=== PATIENT | male | born 1945 | race Caucasian/White ===

== ENCOUNTER 2018-09-26 21:14 | Observation (INO) ==
--- NOTE | 2018-09-26 21:44 | ED ---
HPI General Chief Complaint: Chest Pain Stated Complaint: chest pain Time Seen by Provider: 09/26/18 21:38 Related Data Home Medications Medication Instructions Recorded Confirmed albuterol sulfate 0.63 mg INHALATION DAILY 09/26/18 09/26/18 alendronate 70 mg PO QWEEK 09/26/18 09/26/18 atorvastatin 80 mg PO DAILY 09/26/18 09/26/18 hydrocodone-acetaminophen 1 tab PO DAILY 09/26/18 09/26/18 lisinopril 2.5 mg PO DAILY 09/26/18 09/26/18 metformin 2,000 mg PO BID 09/26/18 09/26/18 metoprolol tartrate 12.5 mg PO BID 09/26/18 09/26/18 sildenafil 25 mg PO WEEKLY 09/26/18 09/26/18 Allergies Allergy/AdvReac Type Severity Reaction Status Date / Time No Known Allergies Allergy Uncoded 02/11/14 11:40 Review of Systems ROS: all other systems reviewed are negative PMFSH History History Provided By: Patient Medical History Medical History COPD (chronic obstructive pulmonary disease) (Acute) Diabetes (Acute) Surgical History Surgical History History of back surgery (Acute) Hx of hernia repair (Acute) S/P CABG x 5 (Acute) Social History Social History Substance History: No History of Abuse Second Hand Smoke Exposure: No Smoking Status: Former smoker How Often Do You Have a Drink Containing Alcohol: Never Recent Travel in [facility] within the Last 8 Weeks: No Recent Out of Country Travel within the Last 8 Weeks: No Exam Narrative Exam Narrative: GENERAL: Well-nourished, well-developed patient in no apparent distress. SKIN: Warm and dry. HEAD: Atraumatic. Normocephalic. EYES: Pupils equal and round. No scleral icterus. No injection or drainage. ENT: No nasal bleeding or discharge. Mucous membranes pink and moist. NECK: Trachea midline. No JVD. CARDIOVASCULAR: Regular rate and rhythm. no rubs or gallops RESPIRATORY: No accessory muscle use. Clear to auscultation. Breath sounds equal bilaterally. GASTROINTESTINAL: Abdomen soft, non-tender, nondistended. No rebound or guarding MUSCULOSKELETAL: Extremities without clubbing, cyanosis, or edema. No obvious deformities. NEUROLOGICAL: Awake and alert. No obvious cranial nerve deficits. Motor grossly within normal limits. Five out of 5 muscle strength in the arms and legs. Normal speech. PSYCHIATRIC: Appropriate mood and affect; insight and judgment normal. Course Initial Documented Vital Signs Temperature 97.7 F 09/26/18 21:17 Pulse Rate 93 H 09/26/18 21:17 Respiratory Rate 18 09/26/18 21:17 Blood Pressure 164/77 H 09/26/18 21:17 Pulse Oximetry 96 09/26/18 21:17 Last Documented Vital Signs Temperature 97.7 F 09/26/18 21:17 Pulse Rate 80 09/26/18 21:43 Respiratory Rate 17 09/26/18 23:26 Blood Pressure 149/70 H 09/26/18 21:43 Pulse Oximetry 97 09/26/18 21:43 Medical Decision Making MDM Narrative Medical Screen Exam Complete: Yes Emergency Medical Condition: Yes Lab Data Result diagrams: 09/26/18 21:55 09/26/18 21:55 Lab Results 09/26/18 09/26/18 09/26/18 Range/Units 21:55 21:55 21:55 WBC 7.7 (4.0-11.0) th/mm3 RBC 4.59 (4.50-5.90) mil/mm3 Hgb 13.4 (13.0-17.0) gm/dL Hct 38.1 L (39.0-51.0) % MCV 83.0 (80.0-100.0) fL MCH 29.2 (27.0-34.0) pg MCHC 35.2 (32.0-36.0) % RDW 13.0 (11.6-17.2) % Plt Count 153 (150-450) th/mm3 MPV 9.2 (7.0-11.0) fL Neut % (Auto) 65.5 (16.0-70.0) % Lymph % (Auto) 22.3 (9.0-44.0) % [place] % (Auto) 9.7 H (0.0-8.0) % Eos % (Auto) 2.0 (0.0-4.0) % Baso % (Auto) 0.5 (0.0-2.0) % Neut # (Auto) 5.0 (1.8-7.7) th/mm3 Lymph # (Auto) 1.7 (1.0-4.8) th/mm3 [place] # (Auto) 0.8 (0.0-0.9) th/mm3 Eos # (Auto) 0.2 (0.0-0.4) th/mm3 Baso # (Auto) 0.0 (0.0-0.2) th/mm3 WBC Differential . Differential Comment Auto diff final Sodium 141 (136-145) meq/L Potassium 3.7 (3.5-5.1) meq/L Chloride 108 H (98-107) meq/L Carbon Dioxide 24.2 (21.0-32.0) meq/L Anion Gap 9 (5-15) meq/L BUN 13 (7-18) mg/dL Creatinine 0.97 (0.60-1.30) mg/dL Estimated GFR 75 L (>89) mL/min Random Glucose 175 H (74-106) mg/dL Calcium 8.6 (8.5-10.1) mg/dL Total Bilirubin 0.4 (0.2-1.0) mg/dL AST 17 (15-37) U/L ALT 30 (12-78) U/L Alkaline Phosphatase 35 L (45-117) U/L Total Creatine Kinase 123 (39-308) U/L CK-MB (CK-2) 2.5 (0.5-3.6) ng/mL Troponin I Less than 0.02 L (0.02-0.05) ng/mL B-Natriuretic Peptide 21 (0-100) pg/mL Total Protein 6.8 (6.4-8.2) g/dL Albumin 3.5 (3.4-5.0) g/dL Lipase 138 (73-393) U/L Serum Alcohol Less than 3 (0-5) mg/dL Imaging Data Radiologist's impression: Chest X-Ray 09/26/18 21:39 CONCLUSION: Very mild bibasilar atelectasis. Discharge Plan Physicians Team ED Provider: Barrett Glass Rxs /Orders / Referrals /Forms Prescriptions: No Action albuterol sulfate 0.63 mg/3 mL Solution For Nebulization 0.63 mg INHALATION DAILY RF: 0 atorvastatin 80 mg Tablet 80 mg PO DAILY RF: 0 hydrocodone-acetaminophen 5-325 mg Tablet 1 tab PO DAILY RF: 0 alendronate 70 mg Tablet 70 mg PO QWEEK RF: 0 sildenafil 25 mg Tablet 25 mg PO WEEKLY RF: 0 metformin 1,000 mg Tablet 2,000 mg PO BID RF: 0 lisinopril 2.5 mg Tablet 2.5 mg PO DAILY RF: 0 metoprolol tartrate 25 mg Tablet 12.5 mg PO BID RF: 0 Status ED Status: With Doctor
--- NOTE | 2018-09-26 21:55 | ED ---
HPI General Chief Complaint: Chest Pain Stated Complaint: chest pain Time Seen by Provider: 09/26/18 21:38 Source: patient Mode of arrival: ambulatory Limitations: no limitations History of Present Illness HPI narrative: The patient is a 73 year old male with a history of CAD s/p CABG x5, hypertension and diabetes who presents to the ED with chief complaint of substernal chest pain. Patient was sitting down when he had sudden onset of sharp pain. He states the pain radiated down his left leg. He has had no nausea, vomiting or SOB. No fever or chills. PMHx: HTN Diabetes CAD s/p CABG x 5 Hyperlipidemia SHx: Denies alcohol Smoking history - quit 35 years ago MD complaint: Reports chest pain STEMI Alert: No Onset (ago): hour(s) Duration: constant Onset: during rest Pain location: Reports substernal Severity: moderate Severity scale (1-10): 5 Quality: Reports sharp Pain radiation: Reports other (LLE) Relieving factors: nothing Exacerbating factors: exertion Treatments prior to arrival chest pain: Reports none Related Data Home Medications Medication Instructions Recorded Confirmed albuterol sulfate 0.63 mg INHALATION DAILY 09/26/18 09/26/18 alendronate 70 mg PO QWEEK 09/26/18 09/26/18 atorvastatin 80 mg PO DAILY 09/26/18 09/26/18 hydrocodone-acetaminophen 1 tab PO DAILY 09/26/18 09/26/18 lisinopril 2.5 mg PO DAILY 09/26/18 09/26/18 metformin 2,000 mg PO BID 09/26/18 09/26/18 metoprolol tartrate 12.5 mg PO BID 09/26/18 09/26/18 sildenafil 25 mg PO WEEKLY 09/26/18 09/26/18 Allergies Allergy/AdvReac Type Severity Reaction Status Date / Time No Known Allergies Allergy Uncoded 02/11/14 11:40 Review of Systems ROS: all other systems reviewed are negative [facility] Medical History Medical History COPD (chronic obstructive pulmonary disease) (Acute) Diabetes (Acute) Surgical History Surgical History History of back surgery (Acute) Hx of hernia repair (Acute) S/P CABG x 5 (Acute) Social History Social History Substance History: No History of Abuse Second Hand Smoke Exposure: No Smoking Status: Former smoker How Often Do You Have a Drink Containing Alcohol: Never Recent Travel in [facility] within the Last 8 Weeks: No Recent Out of Country Travel within the Last 8 Weeks: No Immunization History Tetanus Immunization: <5 Years Exam Narrative Exam Narrative: GENERAL: Well-developed, well-nourished male in mild distress, alert and oriented x3. SKIN: Warm and dry. HEAD: Atraumatic. Normocephalic. EYES: Pupils equal and round. No scleral icterus. No injection or drainage. ENT: No nasal bleeding or discharge. Mucous membranes pink and moist. NECK: Trachea midline. No JVD. CARDIOVASCULAR: Regular rate and rhythm. RESPIRATORY: No accessory muscle use. Mild bibasilar crackles. Breath sounds equal bilaterally. GASTROINTESTINAL: Abdomen soft, non-tender, nondistended. Hepatic and splenic margins not palpable. MUSCULOSKELETAL: Extremities without clubbing, cyanosis, or edema. No obvious deformities. NEUROLOGICAL: Awake and alert. No obvious cranial nerve deficits. Motor grossly within normal limits. Five out of 5 muscle strength in the arms and legs. Normal speech. PSYCHIATRIC: Appropriate mood and affect; insight and judgment normal. Course Initial Documented Vital Signs Temperature 97.7 F 09/26/18 21:17 Pulse Rate 93 H 09/26/18 21:17 Respiratory Rate 18 09/26/18 21:17 Blood Pressure 164/77 H 09/26/18 21:17 Pulse Oximetry 96 09/26/18 21:17 Last Documented Vital Signs Temperature 97.7 F 09/26/18 21:17 Pulse Rate 80 09/26/18 21:43 Respiratory Rate 17 09/26/18 23:26 Blood Pressure 149/70 H 09/26/18 21:43 Pulse Oximetry 97 09/26/18 21:43 Medical Decision Making Lab Data Lab results reviewed: Yes I reviewed the patient's lab results. Result diagrams: 09/26/18 21:55 09/26/18 21:55 Lab Results 09/26/18 09/26/18 09/26/18 Range/Units 21:55 21:55 21:55 WBC 7.7 (4.0-11.0) th/mm3 RBC 4.59 (4.50-5.90) mil/mm3 Hgb 13.4 (13.0-17.0) gm/dL Hct 38.1 L (39.0-51.0) % MCV 83.0 (80.0-100.0) fL MCH 29.2 (27.0-34.0) pg MCHC 35.2 (32.0-36.0) % RDW 13.0 (11.6-17.2) % Plt Count 153 (150-450) th/mm3 MPV 9.2 (7.0-11.0) fL Neut % (Auto) 65.5 (16.0-70.0) % Lymph % (Auto) 22.3 (9.0-44.0) % [place] % (Auto) 9.7 H (0.0-8.0) % Eos % (Auto) 2.0 (0.0-4.0) % Baso % (Auto) 0.5 (0.0-2.0) % Neut # (Auto) 5.0 (1.8-7.7) th/mm3 Lymph # (Auto) 1.7 (1.0-4.8) th/mm3 [place] # (Auto) 0.8 (0.0-0.9) th/mm3 Eos # (Auto) 0.2 (0.0-0.4) th/mm3 Baso # (Auto) 0.0 (0.0-0.2) th/mm3 WBC Differential . Differential Comment Auto diff final Sodium 141 (136-145) meq/L Potassium 3.7 (3.5-5.1) meq/L Chloride 108 H (98-107) meq/L Carbon Dioxide 24.2 (21.0-32.0) meq/L Anion Gap 9 (5-15) meq/L BUN 13 (7-18) mg/dL Creatinine 0.97 (0.60-1.30) mg/dL Estimated GFR 75 L (>89) mL/min Random Glucose 175 H (74-106) mg/dL Calcium 8.6 (8.5-10.1) mg/dL Total Bilirubin 0.4 (0.2-1.0) mg/dL AST 17 (15-37) U/L ALT 30 (12-78) U/L Alkaline Phosphatase 35 L (45-117) U/L Total Creatine Kinase 123 (39-308) U/L CK-MB (CK-2) 2.5 (0.5-3.6) ng/mL Troponin I Less than 0.02 L (0.02-0.05) ng/mL B-Natriuretic Peptide 21 (0-100) pg/mL Total Protein 6.8 (6.4-8.2) g/dL Albumin 3.5 (3.4-5.0) g/dL Lipase 138 (73-393) U/L Serum Alcohol Less than 3 (0-5) mg/dL Imaging Data Radiologist's impression: Chest X-Ray 09/26/18 21:39 CONCLUSION: Very mild bibasilar atelectasis. ECG Data EKG Prior to Arrival: No Attestation: I personally reviewed and interpreted this ECG as follows: Prior ECG tracings: not available for review Interpretation: Normal sinus rhythm, 79 bpm, sinus arrhythmia, normal intervals , significant Q waves in 3 and aVF but without any acute ST elevation VT pattern noted. Discharge Plan Physicians Team ED Provider: Barrett Glass Rxs /Orders / Referrals /Forms Prescriptions: No Action albuterol sulfate 0.63 mg/3 mL Solution For Nebulization 0.63 mg INHALATION DAILY RF: 0 atorvastatin 80 mg Tablet 80 mg PO DAILY RF: 0 hydrocodone-acetaminophen 5-325 mg Tablet 1 tab PO DAILY RF: 0 alendronate 70 mg Tablet 70 mg PO QWEEK RF: 0 sildenafil 25 mg Tablet 25 mg PO WEEKLY RF: 0 metformin 1,000 mg Tablet 2,000 mg PO BID RF: 0 lisinopril 2.5 mg Tablet 2.5 mg PO DAILY RF: 0 metoprolol tartrate 25 mg Tablet 12.5 mg PO BID RF: 0 Status ED Status: With Doctor
--- NOTE | 2018-09-26 22:02 | XR ---
EXAM DATE: 09/26/2018 9:52 PM EST AGE/SEX: 73 years / Male INDICATIONS: Chest pain for 4 hours. CLINICAL DATA: This is the patient's initial encounter. Patient reports that signs and symptoms have been present for 1 day and indicates a pain score of 7/10. MEDICAL/SURGICAL HISTORY: None. None. COMPARISON: No prior exams available for comparison. FINDINGS: Trace atelectasis of both bases. No pneumonic infiltrate seen. No pleural effusion or pneumothorax. Heart size within normal limits. Patient has had previous median sternotomy and coronary artery bypas s graft operation. CONCLUSION: Very mild bibasilar atelectasis. Electronically signed by: Wilton Wright MD 09/26/2018 10:00 PM EST
[2018-09-26] MEDS ORDERED: Morphine Inj 4 MG/ML Vial IV.PUSH ONE (22:06)
[2018-09-26 22:38] LABS: Baso % (Auto) 0.5 % (0.0-2.0); Eos # (Auto) 0.2 th/mm3 (0.0-0.4); Hematocrit 38.1 % (39.0-51.0); Hemoglobin 13.4 gm/dL (13.0-17.0); Lymph # (Auto) 1.7 th/mm3 (1.0-4.8); Lymph % (Auto) 22.3 % (9.0-44.0); Mean Corpuscular HGB Conc 35.2 % (32.0-36.0); Mean Corpuscular Hemoglobin 29.2 pg (27.0-34.0); Mean Platelet Volume 9.2 fL (7.0-11.0); Mono # (Auto) 0.8 th/mm3 (0.0-0.9); Mono % (Auto) 9.7 % (0.0-8.0); Neut % (Auto) 65.5 % (16.0-70.0); Platelet Count 153 th/mm3 (150-450); Red Blood Count 4.59 mil/mm3 (4.50-5.90); White Blood Count 7.7 th/mm3 (4.0-11.0)
[2018-09-26 23:04] LABS: Alanine Aminotransferase 30 U/L (12-78); Albumin 3.5 g/dL (3.4-5.0); Anion Gap 9 meq/L (5-15); Aspartate Aminotransferase 17 U/L (15-37); Blood Urea Nitrogen 13 mg/dL (7-18); Calcium 8.6 mg/dL (8.5-10.1); Carbon Dioxide 24.2 meq/L (21.0-32.0); Chloride 108 meq/L (98-107); Glomerular Filtration Rate 75 mL/min (>89); Glucose,Random 175 mg/dL (74-106); Lipase 138 U/L (73-393); Potassium 3.7 meq/L (3.5-5.1); Sodium 141 meq/L (136-145)
[2018-09-26 23:08] LABS: Alkaline Phosphatase 35 U/L (45-117); Creatine Kinase 123 U/L (39-308); Total Protein 6.8 g/dL (6.4-8.2)
[2018-09-26 23:24] LABS: Creatine Kinase MB 2.5 ng/mL (0.5-3.6)
[2018-09-27] MEDS ORDERED: Heparin - SQ 10,000 UNITS/ML Vial SQ SCH (00:15)
[2018-09-27 01:38] LABS: Creatine Kinase 102 U/L (39-308)
[2018-09-27 01:53] LABS: Bacteria,Urine Rare /hpf; Bilirubin,Urine Negative (Negative); Clarity,Urine Hazy (Clear); Color,Urine Yellow (Yellw/Straw); Glucose,Urine (UA) Negative (Negative); Leukocyte Esterase,Urine Trace (Negative); Mucus,Urine Few /lpf (Occasional); Nitrite,Urine Negative (Negative); Specific Gravity,Urine 1.011 (1.002-1.035); Squamous Epithelial Cell,Urine 1 /hpf (0-5)
[2018-09-27 01:57] LABS: Amphetamine Screen,Urine Neg (Neg); Barbiturate Screen,Urine Neg (Neg); Cannabinoid Screen,Urine Neg (Neg); Cocaine Screen,Urine Neg (Neg)
[2018-09-27 02:01] LABS: Opiate Screen,Urine Neg (Neg)
[2018-09-27] MEDS ORDERED: Morphine Inj 4 MG/ML Vial IV.PUSH ONE (03:15)
[2018-09-27 05:00] LABS: Creatine Kinase 93 U/L (39-308)
[2018-09-27 06:05] VITALS: TEMP 97.8
[2018-09-27 07:07] VITALS: RESP 17
--- NOTE | 2018-09-27 08:21 | P.HPCA ---
History of Present Illness Primary Care Physician: CRYS DAVIS Chief Complaint: Chest pain History of Present Illness: 73 year old male with history of CAD, CABGx5 (2005), diabetes, hypertension, chronic back pain and hyperlipidemia presents emergency room for further evaluation of nonexertional, sudden onset chest pain. Onset 630 pm. Location substernal slightly left of sternum. Characterized as sharp. Moderate in severity. Duration 2-3 minutes of "waves" sharp pain that "takes my breath away." Frequency and intensity increased over matter of hours therefore came to ER for further evaluation. Denies deep breathing makes pain worse, no particular movement or position makes pain better or worse. No radiation but reported "a few times sharp pain radiated to left leg." No precipitating or relieving factors. Given morphine in the ER with little relief. Denies similar pain in the past. Endorses chronic back pain, recently primary care provider quit prescribing hydrocodone however this was weeks ago. Discomfort not similar to past cardiac symptoms. Reports only cardiac symptom prior to CABG was dyspnea. 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 Does not recall last stress test. Last seen Dr. Odonnell one year ago, next appointment scheduled end of September. No history of CHF, recent illness, fever, or injury. No sick contacts or recent travel. Past cardiac testing No recent cardiac testing. Spoke with Radhika, [facility], most recent cardiac testing 2015. CABGx5 (2005-[place]) Social history Known coronary artery disease, diabetes, hypertension, and hyperlipidemia. Former smoker quit 35 years ago. No alcohol or recreational drug use. . 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 [facility]. Endorses sedentary lifestyle. Permanent resident of [place] x8 years. Family history No known early onset cardiovascular disease, however not close with his family so really does not know details. - Diagnosis (1) Atypical chest pain (2) History of coronary artery disease (3) Type II diabetes mellitus (4) History of COPD (5) Hypertension Review of Systems All other systems reviewed negative except as [facility] - History History Provided By: Patient - Medical History Medical History: Medical History (Last Updated 09/27/18 @ 08:52 by [facility]) COPD (chronic obstructive pulmonary disease) Chronic back pain Coronary artery disease Diabetes Hyperlipidemia Hypertension - Surgical History Surgical History: Surgical History (Last Updated 09/27/18 @ 08:52 by [facility]) History of back surgery Hx of hernia repair S/P CABG x 5 - Social History I have reviewed the patient's Social History: Yes - Tobacco History Second Hand Smoke Exposure: No Tobacco Use In Past 30 Days: No Smoking Status: Former smoker (quit 35 years ago) - Alcohol History How Often Do You Have a Drink Containing Alcohol: Never - Substance Use History Substance History: No History of Abuse - Travel History Recent Travel in the [place] Within the Last 8 Weeks: No Recent Travel Out of the Country Within the Last 8 Weeks: No - Immunization History Tetanus Immunization: <5 Years Medications and Allergies Active Medications: Active Medications Heparin Sodium (Porcine) (Heparin Inj) 5,000 units SQ Q12H CHANDA Last Admin: 09/27/18 00:59 Dose: 5,000 units Nitroglycerin (Nitrostat Sl) 0.4 mg SL Q5M PRN PRN Reason: CHEST PAIN Sodium Chloride (Ns Flush) 2 ml IV.FLUSH UNSCH PRN PRN Reason: FLUSH AFTER USING IV ACCESS Sodium Chloride (Ns Flush) 2 ml IV.FLUSH BID CHANDA Sodium Chloride (Ns Flush) 2 ml IV.FLUSH PRN PRN PRN Reason: FLUSH AFTER USING IV ACCESS Allergies Allergy/AdvReac Type Severity Reaction Status Date / Time No Known Allergies Allergy Verified 09/27/18 01:29 Home Medications Medication Instructions Recorded Confirmed Type albuterol sulfate 0.63 mg INHALATION DAILY 09/26/18 09/26/18 History alendronate 70 mg PO QWEEK 09/26/18 09/26/18 History atorvastatin 80 mg PO DAILY 09/26/18 09/26/18 History hydrocodone-acetaminophen 1 tab PO DAILY 09/26/18 09/26/18 History lisinopril 2.5 mg PO DAILY 09/26/18 09/26/18 History metformin 2,000 mg PO BID 09/26/18 09/26/18 History metoprolol tartrate 12.5 mg PO BID 09/26/18 09/26/18 History sildenafil 25 mg PO WEEKLY 09/26/18 09/26/18 History Exam Vital signs: Vital Signs 09/26/18 21:17 09/26/18 21:43 09/26/18 23:26 Temperature 97.7 F Pulse Rate 93 H 80 Respiratory Rate 18 17 17 Blood Pressure 164/77 H 149/70 H Pulse Oximetry 96 97 09/27/18 01:14 09/27/18 03:46 09/27/18 04:34 Temperature 98.5 F Pulse Rate 65 65 Respiratory Rate 18 18 14 Blood Pressure 139/67 138/74 Pulse Oximetry 98 99 09/27/18 06:04 09/27/18 07:07 Temperature 97.8 F Pulse Rate 70 65 Respiratory Rate 19 17 Blood Pressure 134/71 119/66 Pulse Oximetry 97 97 Intake & Output 09/26/18 09/27/18 09/27/18 18:59 06:59 18:59 Weight 88.451 kg Narrative: GENERAL: Alert WN, WD, NAD, pleasant, elderly male HEAD: NC, AT EYES: Sclera clear, conjunctiva without injection, pupils equal and round ENT: Mucous membranes pink and moist NECK: Supple, no masses, trachea midline CV: RRR, without murmur, rub, gallop, no JVD, S1-S2. Chest wall nontender to palpation RESP: Clear lungs throughout bilateral, no crackles, wheeze, rhonchi, symmetrical chest rise, nonlabored, able to speak in full sentences ABD: Soft, NT, ND, no masses, positive bowel tones BACK: No scoliosis EXT: Pulses +2x4, no dependent edema MS: Normal tone x4 extremities, nontender, no obvious deformities, full range of motion NEURO: CN II through CN XII grossly intact, motor strength 5/5 PSYCH: A+O x3, pleasant affect, appropriate speech, mood, insight and judgment SKIN: Normal turgor, normal texture Results 09/26/18 21:55 09/26/18 21:55 Cardiac Enzymes 09/26/18 09/26/18 09/27/18 Range/Units 21:55 21:55 01:00 AST 17 (15-37) U/L CK-MB (CK-2) 2.5 (0.5-3.6) ng/mL Troponin I Less than 0.02 L Less than 0.02 L (0.02-0.05) ng/mL B-Natriuretic Peptide 21 (0-100) pg/mL 09/27/18 Range/Units 04:00 AST (15-37) U/L CK-MB (CK-2) (0.5-3.6) ng/mL Troponin I Less than 0.02 L (0.02-0.05) ng/mL B-Natriuretic Peptide (0-100) pg/mL Coagulation 09/26/18 Range/Units 21:55 B-Natriuretic Peptide 21 (0-100) pg/mL CBC 09/26/18 Range/Units 21:55 WBC 7.7 (4.0-11.0) th/mm3 RBC 4.59 (4.50-5.90) mil/mm3 Hgb 13.4 (13.0-17.0) gm/dL Hct 38.1 L (39.0-51.0) % Plt Count 153 (150-450) th/mm3 Neut # (Auto) 5.0 (1.8-7.7) th/mm3 Lymph # (Auto) 1.7 (1.0-4.8) th/mm3 [place] # (Auto) 0.8 (0.0-0.9) th/mm3 Eos # (Auto) 0.2 (0.0-0.4) th/mm3 Baso # (Auto) 0.0 (0.0-0.2) th/mm3 Comprehensive Metabolic Panel 09/26/18 Range/Units 21:55 Sodium 141 (136-145) meq/L Potassium 3.7 (3.5-5.1) meq/L Chloride 108 H (98-107) meq/L Carbon Dioxide 24.2 (21.0-32.0) meq/L BUN 13 (7-18) mg/dL Creatinine 0.97 (0.60-1.30) mg/dL Calcium 8.6 (8.5-10.1) mg/dL AST 17 (15-37) U/L ALT 30 (12-78) U/L Alkaline Phosphatase 35 L (45-117) U/L Total Protein 6.8 (6.4-8.2) g/dL Albumin 3.5 (3.4-5.0) g/dL Intake and Output 09/26/18 09/27/18 09/27/18 22:59 06:59 14:59 Other: Weight 88.451 kg - Imaging and Cardiology Imaging: Impressions Chest X-Ray 09/26/18 21:39 CONCLUSION: Very mild bibasilar atelectasis. EKG interpretations - EKG EKG results cardiology: sinus rhythm, normal axis, normal QRS, normal ST/T (Q waves inferiorly) Caprini VTE Risk Assessment Caprini VTE Risk Assessment: Moderate/High Risk (score >= 2) Caprini Risk Assessment Model: Point Value = 1 Point Value = 2 Point Value = 3 Point Value = 5 Age 41-60 Minor surgery BMI > 25 kg/m2 Swollen legs Varicose veins or History of unexplained or recurrent spontaneous Oral contraceptives or hormone replacement Sepsis (< 1 month) Serious lung disease, including pneumonia (< 1 month) Abnormal pulmonary function Acute myocardial infarction Congestive heart failure (< 1 month) History of inflammatory bowel disease Medical patient at bed rest Age 61-74 Arthroscopic surgery Major open surgery (> 45 min) Laparoscopic surgery (> 45 min) Malignancy Confined to bed (> 72 hours) Immobilizing plaster cast Central venous access Age >= 75 History of VTE Family history of VTE Factor V Leiden Prothrombin [id number] Lupus anticoagulant Anticardiolipin antibodies Elevated serum homocysteine Heparin-induced thrombocytopenia Other congenital or acquired thrombophilia Stroke (< 1 month) Elective arthroplasty Hip, pelvis, or leg fracture Acute spinal cord injury (< 1 month) Prophylaxis Regimen: Total Risk Factor Score Risk Level Prophylaxis Regimen 0-1 Low Early ambulation 2 Moderate Order ONE of the following: *Sequential Compression Device (SCD) *Heparin 5000 units SQ BID 3-4 Higher Order ONE of the following medications: *Heparin 5000 units SQ TID *Enoxaparin/Lovenox 40 mg SQ daily (WT < 150 kg, CrCl > 30 mL/min) *Enoxaparin/Lovenox 30 mg SQ daily (WT < 150 kg, CrCl > 10-29 mL/min) *Enoxaparin/Lovenox 30 mg SQ BID (WT < 150 kg, CrCl > 30 mL/min) AND/OR *Sequential Compression Device (SCD) 5 or more Highest Order ONE of the following medications: *Heparin 5000 units SQ TID (Preferred with Epidurals) *Enoxaparin/Lovenox 40 mg SQ daily (WT < 150 kg, CrCl > 30 mL/min) *Enoxaparin/Lovenox 30 mg SQ daily (WT < 150 kg, CrCl > 10-29 mL/min) *Enoxaparin/Lovenox 30 mg SQ BID (WT < 150 kg, CrCl > 30 mL/min) AND *Sequential Compression Device (SCD) Assessment and Plan - Assessment (1) Atypical chest pain Code(s): R07.89 - Other chest pain Status: Acute Plan: Admitted to chest pain center. ACS ruled out by 3 sets of EKGs and cardiac enzymes. Seen and evaluated by Dr. Raquel Gaston. Call placed to [facility] to determine most recent cardiac testing. Most recent cardiac testing completed 2015. Proceed with Lexiscan this morning. If unremarkable, plans to discharge home with follow up with primary care provider. Discomfort has pleuritic component. Will try Toradol 30 mg IV x1 dose and reassess. (2) History of coronary artery disease Code(s): Z86.79 - Personal history of other diseases of the circulatory system Status: Acute Plan: Follows with Dr. Odonnell. No recent cardiac testing. Proceed Lexiscan. Continue metoprolol and atorvastatin. (3) Type II diabetes mellitus Code(s): E11.9 - Type 2 diabetes mellitus without complications Status: Chronic Plan: Metformin. SSI low dose coverage. Follow-up with primary care provider. (4) History of COPD Code(s): Z87.09 - Personal history of other diseases of the respiratory system Status: Chronic Plan: Albuterol nebulizers every 2 hours as needed for shortness of breath/wheezing. (5) Hypertension Code(s): I10 - Essential (primary) hypertension Status: Chronic Plan: Continue lisinopril. Discussed importance of tight blood pressure control. 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
[2018-09-27] MEDS ORDERED: Dextrose 50% in Water 50 ML Vial IV.PUSH PRN (09:13)
[2018-09-27] MEDS ORDERED: Metoprolol Tartrate 25 MG Tablet PO SCH (09:15)
[2018-09-27] MEDS ORDERED: Lisinopril 5 MG Tablet PO SCH (09:15)
[2018-09-27] MEDS ORDERED: Ketorolac Inj 30 MG/ML (IVP) Vial IV.PUSH ONE (09:15)
[2018-09-27 10:30] VITALS: BP 128/69; PULSE 66; O2SAT 98
[2018-09-27] MEDS ORDERED: Regadenoson Inj 0.4 MG/5 ML Syringe IV.PUSH ONE (11:10)
[2018-09-27] MEDS ORDERED: Insulin NovoLOG Aspart Correctional Sugar Inj SQ SCH (12:00)
--- NOTE | 2018-09-27 12:49 | NM ---
EXAM DATE: 09/27/2018 12:35 PM EST AGE/SEX: 73 years / Male INDICATIONS:Angina. Coronary artery bypass grafting Chest pain. CLINICAL DATA: This is the patient's initial encounter. Patient reports that signs and symptoms have been present for 1 day and indicates a pain score of 0/10. MEDICAL/SURGICAL HISTORY: Diabetes mellitus type II. Hypertension. Chronic obstructive pulmon tika disease. CABG. COMPARISON: [facility], CHEST 1V SINGLE AP, 09/26/2018. . DOSE: 8.6 mCi Tc 99m Myoview at rest 26.7 mCi [id number] at stress 0.4 mg Lexiscan STRESS SYMPTOMS: None. EJECTION FRACTION: 58 % TECHNIQUE: The patient underwent pharmacologic stress with infusion of prescribed dose. Continuous ECG tracing was monitored during stress. Gated SPECT imaging was performed after stress and conventi onal SPECT imaging was performed at rest. The examination was performed on a SPECT/CT scanner, both attenuation and non-corrected datasets were reviewed. FINDINGS: Distribution: The maximum perfused segment at stress is in the anterior wall. Perfusion Study: The pattern of perfusion at stress is within normal limits. Gated Study: There are intact wall motion and wall thickening without hypokinetic or dyskinetic segm ents. The ejection fraction is calculated at 58%. RISK CATEGORY: Low (<1% Annual Motality Rate) CONCLUSION: 1. Negative examination. Electronically signed by: Esme Hansen MD 09/27/2018 12:48 PM EST
--- NOTE | 2018-09-27 16:59 | TR ---
Date Performed: 09/27/2018 Time Performed: 11:15:28 DOCTOR: Raquel Gaston DRUG LIST: CLINICAL HISTORY: REASON FOR TEST: REASON FOR ENDING: OBSERVATION: CONCLUSION: Lexiscan stress test was performed under standard four minute protocol. Radionuclid e was injected one minute prior to ending the test. No electrocardiographic abormalities were present to suggest ischemia. Nuclear imaging and interpretation are pending. COMMENTS: Lexiscan stress test was performed under standard four minute protocol. Radionuclide was injected one minute prior to ending the test. No electrocardiographic abormalities were present t o suggest ischemia. Nuclear imaging and interpretation are pending.
--- NOTE | 2018-09-27 17:01 | ECG ---
Date Performed: 09/27/2018 Time Performed: 03:58:13 PTAGE: 73 years EKG: Sinus rhythm NORMAL ECG PREVIOUS TRACING : 09/27/2018 01.01 DOCTOR: Raquel Gaston Interpretating Date/Time 09/27/2018 17:00:48
--- NOTE | 2018-09-27 17:02 | ECG ---
Date Performed: 09/27/2018 Time Performed: 01:01:52 PTAGE: 73 years EKG: Sinus rhythm NORMAL ECG Since PREVIOUS TRACING , no significant change noted PREVIOUS TRACIN09/27/2018 01.00 DOCTOR: Raquel Gaston Interpretating Date/Time 09/27/2018 17:01:48
--- NOTE | 2018-09-27 17:02 | ECG ---
Date Performed: 09/26/2018 Time Performed: 21:29:35 PTAGE: 73 years EKG: Sinus rhythm WITH SINUS ARRHYTHMIA NORMAL ECG NO PREVIOUS TRACING DOCTOR: Raquel Gaston Interpretating Date/Time 09/27/2018 17:01:55
--- NOTE | 2018-09-27 17:48 | CT ---
EXAM DATE: 09/27/2018 5:43 PM EST AGE/SEX: 73 years / Male INDICATIONS: Left-sided chest pain. CLINICAL DATA: This is the patient's initial encounter. Patient reports that signs and symptoms have been present for 1 day and indicates a pain score of 8/10. MEDICAL/SURGICAL HISTORY: Chronic obstructive pulmonary disease. Cardiovascular disease. Hyperten jory. Diabetes. CABG. Back surgery. RADIATION DOSE: 10.76 CTDI (mGy) COMPARISON: No prior exams available for comparison. TECHNIQUE: Volumetric scanning was performed using a multi-row detector CT scanner during bolus infu jory of 72 ml Omnipaque 350 (iohexol) nonionic water-soluble contrast as a single exam dose. The pallavi a was post processed with a variety of visualization algorithms including full volume maximum intensi ty projection and sliding thin slab reformation. Using automated exposure control and adjustment of t he mA and/or kV according to patient size, radiation dose was kept as low as reasonably achievable to obtain optimal diagnostic quality images. DICOM format image data is available electronically for r eview and comparison. FINDINGS: Pulmonary Arteries: No filling defects are seen in the pulmonary arteries out to the subsegmental ve ssels. The left and right pulmonary arteries are normal in diameter. Lung: No infiltrates seen. There are some bullous changes along the peripheral aspects of both upper lung galdamez. Effusion: None. Mediastinum: No evidence of mediastinal or hilar adenopathy. There is evidence of previous cardiotho racic surgery. Other: The axilla is unremarkable. CONCLUSION: 1. No evidence of pulmonary embolism. 2. No acute pulmonary infiltrates. Electronically signed by: Jin Thomas MD 09/27/2018 5:47 PM EST
== END 2018-09-27 20:04 | disposition home or self-care (01) ==
LOC: NEPC 21:14 → NEDA 21:14 → NEDH 09-27 04:07 → NEPGCP 09-27 11:35 → NEDH 09-27 11:38 → N06 09-27 13:02 → NEPGCP 09-27 13:03
PROVIDERS: ADMIT Internal Medicine Cardiovascular Disease; ATTEND Internal Medicine Cardiovascular Disease